=== PATIENT | male | born 1965 | race Caucasian/White ===

== ENCOUNTER → 2025-07-17 | Outpatient (REF) | payer OTHER ==
[2025-07-17 18:59] LABS: ALT/SGPT 39 U/L (7.0-40); AST/SGOT 35 U/L (<34); CALCIUM LEVEL 8.7 MG/DL (8.5-10.1); CARBON DIOXIDE LEVEL 30 MMOL/L (20-31); CHLORIDE LEVEL 101 MMOL/L (98-107); CHOLESTEROL LEVEL 216 MG/DL (<200); CHOLESTEROL RISK RATIO 3.78 (<5); CREATININE FOR GFR 0.80 MG/DL (0.70-1.30); FREE T4 1.05 NG/DL (0.89-1.76); GLOMERULAR FILTRATION RATE > 90.0 (>56); IRON (FE) 129 UG/DL (65-175); LDL CHOLESTEROL 123.1 MG/DL (<100); NON-HDL-C 158.9 MG/DL; PERCENT SATURATION 38.3 % (19.7-50.0); POTASSIUM SERUM 4.0 MMOL/L (3.5-5.1); PSA SCREENING 1.48 NG/ML (< 4.00); SODIUM LEVEL 139 MMOL/L (136-145); TRIGLYCERIDES LEVEL 179 MG/DL (<150); VITAMIN B12 LEVEL 543 PG/ML (211-911)
[2025-07-17 19:04] LABS: BASO # 0.1 10^3/uL (0.0-0.2); BASO % 1.2 % (0.0-1.0); EOS # 0.4 10^3/uL (0.0-0.5); EOS % 7.2 % (0.0-3.0); LYMPH # 1.9 10^3/uL (1.5-5.0); LYMPH % 31.8 % (24.0-44.0); MONO # 0.4 10^3/uL (0.0-0.8); MONO % 7.1 % (2.0-8.0); NEUTROPHILS # 3.1 10^3/uL (1.5-8.5); NEUTROPHILS % 52.5 % (36.0-66.0); PLATELET COUNT, AUTOMATED 234 10^3/uL (150-450)
[2025-07-17 19:05] LABS: MALB URINE SIEMENS 31.0 MG/L
[2025-07-17 19:21] LABS: CREATININE, URINE 264.8 MG/DL; MAU/CREAT RATIO 11.7 MCG/MG (0.0-30.0)
[2025-07-17 19:24] LABS: ESTIMATED AVERAGE GLUCOSE 177.0 MG/DL (60-110)
== END ==
LOC: M SFHCCAPE 08:47
PROVIDERS: ATTEND Physician Assistant Medical
DX: K21.9 Gastro-esophageal reflux disease without esophagitis (principal); E11.319 Type 2 diabetes mellitus with unspecified diabetic retinopathy without macular edema; Z98.84 Bariatric surgery status; E78.5 Hyperlipidemia, unspecified; I10 Essential (primary) hypertension; Z12.5 Encounter for screening for malignant neoplasm of prostate
CPT/HCPCS: 80053; 80061; 82043; 82607; 82728; 82746; 83036; 83550; 84439; 84443; 85025; G0103